=== PATIENT | male | born 1955 | race Two or more races ===

== ENCOUNTER → 2020-07-06 | Emergency (ER) | payer MEDICAID, OTHER ==
[~2020-07-06] VITALS: Ht 188 cm; Wt 167.8 kg
[2020-07-06 15:45] LABS: Basophils # (auto) 0.1 10 ^3/uL (0-0.2); Basophils % (auto) 0.8 % (0.0-2.0); Eosinophils # (auto) 0.1 10 ^3/uL (0-0.8); Eosinophils % (auto) 1.2 % (0.0-7.0); Hematocrit 39.7 % (41.0-53.0); Hemoglobin 13.9 g/dL (13.5-17.5); Lymphocytes # (auto) 1.2 10 ^3/uL (0.4-5.4); Lymphocytes % (auto) 12.2 % (10.0-50.0); Mean Corpuscular Hemoglobin 30.1 pg (28.0-32.0); Mean Corpuscular Hgb Conc. 34.9 g/dL (32.0-36.0); Mean Corpuscular Volume 86.3 fL (80.0-100.0); Monocytes # (auto) 0.7 10 ^3/uL (0-1.3); Monocytes % (auto) 7.6 % (0.0-12.0); Neutrophils # (auto) 7.6 10 ^3/uL (1.6-8.6); Neutrophils % (auto) 78.2 % (37.0-80.0); Platelet Count (auto) 285 10^3/uL (140-450); Red Cell Distribution Width 13.4 % (11.8-14.3); White Blood Cell 9.7 10^3/uL (4.4-10.8)
[2020-07-06 16:04] LABS: Albumin 3.3 g/dL (3.4-5.0); Anion Gap 3 (5-15); Blood Urea Nitrogen 18 mg/dL (7-18); Calcium 8.6 mg/dL (8.5-10.1); Carbon Dioxide 29 mmol/L (21-32); Chloride 105 mmol/L (98-107); Glucose 232 mg/dL (74-106); Potassium 4.5 mmol/L (3.5-5.1); Sodium 137 mmol/L (136-145)
[2020-07-06 16:10] LABS: Alanine Aminotransferase 27 U/L (16-61); Alkaline Phosphatase 59 U/L (45-117); Aspartate Aminotransferase 14 U/L (15-37); BUN/Creatinine Ratio 15.5; Bilirubin, Total 0.4 mg/dL (0.2-1.0); GFR African American 82 mL/min; GFR Non-African American 67 mL/min; Total Protein 7.3 g/dL (6.4-8.2)
[2020-07-06 17:03] VITALS: BP 133/87
== END | disposition home or self-care (01) ==
LOC: ER 14:19
DX: G45.9 Transient cerebral ischemic attack, unspecified (principal); E11.65 Type 2 diabetes mellitus with hyperglycemia; E44.1 Mild protein-calorie malnutrition; R42 Dizziness and giddiness; Z68.42 Body mass index [BMI] 45.0-49.9, adult
CPT/HCPCS: 36415; 70450; 71045; 80053; 84484; 85025; 93005

== ENCOUNTER 2021-04-14 17:08 | Inpatient (IN) | payer OTHER, MEDICAID ==
[~2021-04-14] VITALS: Ht 167.6 cm; Wt 171.5 kg
[2021-04-14 18:30] LABS: Basophils # (auto) 0 10 ^3/uL (0-0.2); Eosinophils # (auto) 0 10 ^3/uL (0-0.8); Eosinophils % (auto) 0.1 % (0.0-7.0); Hemoglobin 13.3 g/dL (13.5-17.5); Lymphocytes # (auto) 0.7 10 ^3/uL (0.4-5.4); Lymphocytes % (auto) 3.8 % (10.0-50.0); Mean Corpuscular Hemoglobin 28.6 pg (28.0-32.0); Mean Corpuscular Hgb Conc. 33.4 g/dL (32.0-36.0); Mean Corpuscular Volume 85.7 fL (80.0-100.0); Monocytes # (auto) 0.9 10 ^3/uL (0-1.3); Monocytes % (auto) 4.8 % (0.0-12.0); Neutrophils # (auto) 16.5 10 ^3/uL (1.6-8.6); Neutrophils % (auto) 91.3 % (37.0-80.0); Nucleated Red Blood Cells % 0.1 %; Red Blood Cells 4.67 10^6/uL (4.5-5.90)
[2021-04-14 18:54] LABS: Albumin 3.2 g/dL (3.4-5.0); Calcium 8.4 mg/dL (8.5-10.1); Magnesium 1.9 mg/dL (1.6-2.6); Potassium 4.7 mmol/L (3.5-5.1)
[2021-04-14 19:00] LABS: BUN/Creatinine Ratio 17.1; Bilirubin, Total 0.5 mg/dL (0.2-1.0); Total Protein 7.4 g/dL (6.4-8.2)
[2021-04-14] MEDS ORDERED: ACETAMINOPHEN 325 MG TAB PO ONE (21:00)
[2021-04-14 21:33] LABS: Lactic Acid w/Reflex 2.1 mmol/L (0.4-2.0)
[2021-04-14] MEDS ORDERED: SODIUM CHLORIDE 0.9% 1,000 ML IV ONE (22:00)
[2021-04-14] MEDS ORDERED: ASPirin 325 MG TAB PO ONE (22:00)
[2021-04-14] MEDS ORDERED: ENOXAPARIN SOD 100 MG/1 ML SYRINGE SC ONE (22:15)
[2021-04-15 01:15] LABS: Urine Bacteria NONE SEEN /hpf (None Seen); Urine Blood Negative /uL (Negative); Urine Hyaline Cast FEW /lpf (0 - 2); Urine Mucus FEW (None Seen); Urine Specific Gravity 1.015 (1.001-1.035); Urine WBC 10 /hpf (0 - 3)
[2021-04-15] MEDS ORDERED: ONDANSETRON HCL 4 MG/2 ML VIAL IV PRN (02:15)
[2021-04-15] MEDS ORDERED: SODIUM CHLORIDE 0.9% 1,000 ML IV SCH (02:15)
[2021-04-15] MEDS ORDERED: MORPHINE SULFATE INJECTION 2 MG/ML SYRG IV PRN (02:15)
[2021-04-15] MEDS ORDERED: DEXTROSE (50%) 50ML SYRG IV PRN (02:15)
[2021-04-15] MEDS ORDERED: NITROGLYCERIN 0.4 MG SL TAB SL PRN (02:15)
[2021-04-15] MEDS ORDERED: HEPARIN SODIUM (PORCINE) 5000 UNITS/ML 1ML VIAL IV ONE (02:30)
[2021-04-15 03:38] LABS: Basophils # (auto) 0.2 10 ^3/uL (0-0.2); Basophils % (auto) 1.4 % (0.0-2.0); Eosinophils # (auto) 0.1 10 ^3/uL (0-0.8); Eosinophils % (auto) 0.5 % (0.0-7.0); Hematocrit 39.3 % (41.0-53.0); Lymphocytes % (auto) 7.3 % (10.0-50.0); Mean Corpuscular Hemoglobin 28.5 pg (28.0-32.0); Mean Corpuscular Volume 86.3 fL (80.0-100.0); Monocytes # (auto) 0.9 10 ^3/uL (0-1.3); Monocytes % (auto) 6.7 % (0.0-12.0); Neutrophils # (auto) 11.2 10 ^3/uL (1.6-8.6); Neutrophils % (auto) 84.1 % (37.0-80.0); Red Blood Cells 4.55 10^6/uL (4.5-5.90); Red Cell Distribution Width 13.7 % (11.8-14.3); White Blood Cell 13.3 10^3/uL (4.4-10.8)
[2021-04-15 03:45] LABS: INR 1.1 (0.9-1.15); Partial Thromboplastin Time 34.1 sec (23.6-33.0)
[2021-04-15 05:00] VITALS: BP 116/56
[2021-04-15] MEDS: InsuLIN REG 1unit/0.01ml Soln (100units/ml) SC SCH ×2 (06:00→11:42)
[2021-04-15] MEDS: ACCU-CHEK COMFORT CURVE STRIP VI SCH ×2 (06:00→11:42)
[2021-04-15] MEDS ORDERED: HEPARIN SODIUM (PORCINE) 5000 UNITS/ML 1ML VIAL SC SCH (06:00)
[2021-04-15] MEDS: HEPARIN DRIP/D5W 100UNITS/ML 250 ML IV SCH ×2 (06:24→08:54)
[2021-04-15] MEDS: PIPERACILLIN-TAZOB 2.25GM 50 ML IV SCH ×2 (06:30→11:31)
[2021-04-15 09:00] VITALS: BP 121/80
[2021-04-15] MEDS ORDERED: ASPirin-EC 81 mg tab PO SCH (10:00)
[2021-04-15] MEDS: HYDROcodone-ACET 5/325MG TAB PO PRN ×2 (10:10→14:58)
[2021-04-15 12:11] LABS: BUN/Creatinine Ratio 21.6; Calcium 8.4 mg/dL (8.5-10.1); Potassium 4.5 mmol/L (3.5-5.1)
[2021-04-15 13:00] VITALS: BP 123/76
[2021-04-15 15:27] LABS: INR 1.08 (0.9-1.15); Partial Thromboplastin Time 46.3 sec (23.6-33.0)
[2021-04-15] MEDS ORDERED: ATORVASTATIN 20 MG TAB PO SCH (22:00)
== END 2021-04-15 17:40 | disposition left against medical advice (07) | DRG 871 ==
LOC: ER 17:08 → EDBD 17:08 → TELE-WESTW 04-15 02:14
PROVIDERS: ADMIT Hospitalist; ATTEND Hospitalist
DX: A41.9 Sepsis, unspecified organism (principal); I21.4 Non-ST elevation (NSTEMI) myocardial infarction; N17.9 Acute kidney failure, unspecified; Z68.44 Body mass index [BMI] 60.0-69.9, adult; E87.1 Hypo-osmolality and hyponatremia; L03.031 Cellulitis of right toe; E11.621 Type 2 diabetes mellitus with foot ulcer; E66.01 Morbid (severe) obesity due to excess calories; I10 Essential (primary) hypertension; Z20.822 Contact with and (suspected) exposure to COVID-19; Z53.29 Procedure and treatment not carried out because of patient's decision for other reasons; L97.519 Non-pressure chronic ulcer of other part of right foot with unspecified severity; Q66.89 Other specified congenital deformities of feet; Z80.1 Family history of malignant neoplasm of trachea, bronchus and lung; Z82.3 Family history of stroke
CPT/HCPCS: 36415; 71045; 73620; 80048; 80053; 80061; 81001; 82962; 83036; 83605; 83735; 84484; 85025; 85610; 85652; 85730; 87040; 87426; 93005; 93306; 93926; 96360; 96361; 96372; G0378; J2543

== ENCOUNTER 2022-05-03 20:11 | Inpatient (IN) | payer OTHER, MEDICAID ==
[~2022-05-03] VITALS: Ht 182.9 cm; Wt 145.0 kg
[2022-05-03] MEDS ORDERED: SODIUM CHLORIDE 0.9% 1,000 ML IV ONE ×2 (20:30→23:45)
[2022-05-03] MEDS ORDERED: amLODIPine BESYLATE 5 MG TAB PO ONE (20:30)
[2022-05-03] MEDS ORDERED: InsuLIN REG 1unit/0.01ml Soln (100units/ml) SC ONE (20:30)
[2022-05-03 21:22] LABS: Basophils # (auto) 0 10 ^3/uL (0-0.2); Basophils % (auto) 0.2 % (0.0-2.0); Eosinophils # (auto) 0.1 10 ^3/uL (0-0.8); Eosinophils % (auto) 0.3 % (0.0-7.0); Hematocrit 44.7 % (41.0-53.0); Hemoglobin 14.4 g/dL (13.5-17.5); Lymphocytes # (auto) 0.6 10 ^3/uL (0.4-5.4); Lymphocytes % (auto) 2.2 % (10.0-50.0); Mean Corpuscular Hemoglobin 27.9 pg (28.0-32.0); Mean Corpuscular Hgb Conc. 32.2 g/dL (32.0-36.0); Mean Corpuscular Volume 86.7 fL (80.0-100.0); Monocytes # (auto) 0.9 10 ^3/uL (0-1.3); Monocytes % (auto) 3.8 % (0.0-12.0); Neutrophils # (auto) 23.5 10 ^3/uL (1.6-8.6); Neutrophils % (auto) 93.5 % (37.0-80.0); Red Blood Cells 5.15 10^6/uL (4.5-5.90); Red Cell Distribution Width 13.6 % (11.8-14.3); White Blood Cell 25.1 10^3/uL (4.4-10.8)
[2022-05-03 21:35] LABS: Partial Thromboplastin Time 25.9 sec (24.6-33.4)
[2022-05-03 21:44] LABS: Albumin 3.4 g/dL (3.4-5.0); Magnesium 1.5 mg/dL (1.6-2.6); Potassium 4.3 mmol/L (3.5-5.1)
[2022-05-03 21:47] LABS: BUN/Creatinine Ratio 8.9
[2022-05-03 21:50] LABS: Bilirubin, Total 0.5 mg/dL (0.2-1.0); Total Protein 7.9 g/dL (6.4-8.2)
[2022-05-03] MEDS ORDERED: cefTRIAXone 1GM/50ML D5W 50 ML IV ONE (23:30)
[2022-05-03] MEDS ORDERED: AZITHROMYCIN 500MG/ 250ML 250 ML IV ONE (23:30)
[2022-05-03 23:47] LABS: Lactic Acid w/Reflex 4.4 mmol/L (0.4-2.0)
[2022-05-04] MEDS ORDERED: ACETAMINOPHEN 500 MG TAB PO ONE (00:30)
[2022-05-04] MEDS ORDERED: SODIUM CHLORIDE 0.9% 1,000 ML IV ONE (03:30)
[2022-05-04] MEDS ORDERED: InsuLIN REG 1unit/0.01ml Soln (100units/ml) IV ONE (03:30)
[2022-05-04] MEDS ORDERED: VANCOMYCIN 1GM/250ML 250 ML IV ONE (03:30)
[2022-05-04] MEDS ORDERED: DEXTROSE (50%) 50ML SYRG IV PRN (06:15)
[2022-05-04] MEDS ORDERED: MORPHINE SULFATE INJ 2 MG/ml SYRG IV PRN (06:15)
[2022-05-04] MEDS ORDERED: NITROGLYCERIN 0.4 MG SL TAB SL PRN (06:15)
[2022-05-04] MEDS ORDERED: ACETAMINOPHEN 325 MG TAB PO PRN (06:15)
[2022-05-04] MEDS ORDERED: ONDANSETRON HCL 4 MG/2 ML VIAL IV PRN (06:15)
[2022-05-04] MEDS: MAGNESIUM SULFATE 1GM/100ML 100 ML IV SCH ×2 (08:02→15:15)
[2022-05-04] MEDS ORDERED: PANTOPRAZOLE 40 MG TAB PO SCH (10:00)
[2022-05-04] MEDS ORDERED: AZITHROMYCIN 500MG/ 250ML 250 ML IV SCH (10:00)
[2022-05-04] MEDS: ENOXAPARIN SOD 40 MG/0.4 ML SYRINGE SC SCH (10:00)
[2022-05-04] MEDS ORDERED: HALOPERIDOL LACTATE 5 MG/ML INJ VIAL IM PRN ×2 (11:00→19:15)
[2022-05-04] MEDS ORDERED: HALOPERIDOL LACTATE 5 MG/ML INJ VIAL IM ONE (11:30)
[2022-05-04] MEDS: ACCU-CHEK COMFORT CURVE STRIP VI SCH ×2 (12:00→18:23)
[2022-05-04] MEDS: cefTRIAXone 1GM/50ML D5W 50 ML IV SCH (12:26)
[2022-05-04] MEDS: InsuLIN REG 1unit/0.01ml Soln (100units/ml) SC SCH ×2 (12:37→18:45)
[2022-05-04] MEDS: DOXYCYCLINE 100MG/250ML 250 ML IV SCH (13:46)
[2022-05-04] MEDS: SODIUM CHLORIDE 0.9% 1,000 ML IV SCH ×2 (18:01→18:23)
[2022-05-05] MEDS: ACCU-CHEK COMFORT CURVE STRIP VI SCH ×5 (01:46→22:00)
[2022-05-05] MEDS: InsuLIN REG 1unit/0.01ml Soln (100units/ml) SC SCH ×4 (01:48→18:00)
[2022-05-05] MEDS: DOXYCYCLINE 100MG/250ML 250 ML IV SCH ×3 (01:51→22:42)
[2022-05-05] MEDS ORDERED: IPRATROPIUM BROM 0.5 MG/2.5ML INH SOL NEB PRN (03:15)
[2022-05-05] MEDS ORDERED: ALBUTEROL SULF 2.5 MG/0.5ML(0.5%) NEB SOLN NEB PRN (03:15)
[2022-05-05] MEDS ORDERED: methylPREDNISolone SOD SUCC 125 MG/2 ML VL IV ONE (03:15)
[2022-05-05 04:39] LABS: Hematocrit 39.8 % (41.0-53.0); Hemoglobin 12.9 g/dL (13.5-17.5); Mean Corpuscular Hemoglobin 28.5 pg (28.0-32.0); Mean Corpuscular Hgb Conc. 32.5 g/dL (32.0-36.0); Mean Corpuscular Volume 87.5 fL (80.0-100.0); Red Blood Cells 4.55 10^6/uL (4.5-5.90); Red Cell Distribution Width 13.6 % (11.8-14.3)
[2022-05-05 04:46] LABS: Basophils % (manual) 0 (0.0-2.0); Blast Cells 0; Eosinophils % (manual) 0 (0-7); Metamyelocytes % 0; Myelocytes % 0; Promyelocytes % 0; Reactive Lymphocytes 0
[2022-05-05 05:20] LABS: Albumin 2.4 g/dL (3.4-5.0); BUN/Creatinine Ratio 14.3; Bilirubin, Total 0.6 mg/dL (0.2-1.0); Calcium 8.4 mg/dL (8.5-10.1); Potassium 4.3 mmol/L (3.5-5.1); Total Protein 7.2 g/dL (6.4-8.2)
[2022-05-05] MEDS: SODIUM CHLORIDE 0.9% 1,000 ML IV SCH ×2 (06:41→17:33)
[2022-05-05 08:12] LABS: Band Neutrophils % (manual) 12; Lymphocytes % (manual) 11 (10.0-50.0); Monocytes % (manual) 2 (0-12)
[2022-05-05] MEDS: ENOXAPARIN SOD 40 MG/0.4 ML SYRINGE SC SCH (09:52)
[2022-05-05] MEDS: cefTRIAXone 1GM/50ML D5W 50 ML IV SCH (09:52)
[2022-05-05] MEDS ORDERED: IOHEXOL 350 MG/ML 100ML IJ ONE (16:50)
[2022-05-05] MEDS ORDERED: DEXTROSE (50%) 50ML SYRG IV PRN (19:45)
[2022-05-05] MEDS ORDERED: InsuLIN REG 1unit/0.01ml Soln (100units/ml) SC ONE (19:45)
[2022-05-05] MEDS ORDERED: HYDROcodone-ACET 10/325MG TAB PO PRN (21:45)
[2022-05-05 22:00] VITALS: BP 136/76
[2022-05-05] MEDS: GABAPENTIN 300 MG CAP PO SCH (22:42)
[2022-05-06] MEDS: GABAPENTIN 300 MG CAP PO SCH ×3 (06:01→22:00)
[2022-05-06] MEDS: SODIUM CHLORIDE 0.9% 1,000 ML IV SCH ×2 (06:02→17:23)
[2022-05-06 06:10] LABS: Hematocrit 38.7 % (41.0-53.0); Hemoglobin 12.6 g/dL (13.5-17.5); Mean Corpuscular Hemoglobin 28.5 pg (28.0-32.0); Mean Corpuscular Hgb Conc. 32.4 g/dL (32.0-36.0); Mean Corpuscular Volume 87.9 fL (80.0-100.0); White Blood Cell 28.5 10^3/uL (4.4-10.8)
[2022-05-06 06:27] LABS: Basophils % (manual) 0 (0.0-2.0); Blast Cells 0; Eosinophils % (manual) 0 (0-7); Metamyelocytes % 0; Monocytes % (manual) 0 (0-12); Myelocytes % 0; Promyelocytes % 0; Reactive Lymphocytes 0
[2022-05-06 06:28] LABS: Calcium 7.6 mg/dL (8.5-10.1)
[2022-05-06 06:30] LABS: BUN/Creatinine Ratio 19.3
[2022-05-06 06:38] LABS: Potassium 5.2 mmol/L (3.5-5.1)
[2022-05-06 06:49] LABS: Band Neutrophils % (manual) 30; Lymphocytes % (manual) 7 (10.0-50.0)
[2022-05-06] MEDS: ACCU-CHEK COMFORT CURVE STRIP VI SCH ×4 (06:54→22:34)
[2022-05-06] MEDS: InsuLIN REG 1unit/0.01ml Soln (100units/ml) SC SCH ×3 (07:20→17:22)
[2022-05-06] MEDS: cefTRIAXone 1GM/50ML D5W 50 ML IV SCH (09:08)
[2022-05-06] MEDS: ENOXAPARIN SOD 40 MG/0.4 ML SYRINGE SC SCH (10:00)
[2022-05-06] MEDS: DOXYCYCLINE 100MG/250ML 250 ML IV SCH ×2 (11:29→22:41)
[2022-05-07 02:26] VITALS: BP 149/99
[2022-05-07 05:00] VITALS: BP 140/84
[2022-05-07] MEDS: SODIUM CHLORIDE 0.9% 1,000 ML IV SCH (05:44)
[2022-05-07 05:57] LABS: Basophils # (auto) 0.1 10 ^3/uL (0-0.2); Basophils % (auto) 0.8 % (0.0-2.0); Eosinophils # (auto) 0.2 10 ^3/uL (0-0.8); Eosinophils % (auto) 1.4 % (0.0-7.0); Hematocrit 38.7 % (41.0-53.0); Hemoglobin 12.4 g/dL (13.5-17.5); Lymphocytes # (auto) 1.9 10 ^3/uL (0.4-5.4); Lymphocytes % (auto) 14.6 % (10.0-50.0); Mean Corpuscular Hgb Conc. 32.1 g/dL (32.0-36.0); Mean Corpuscular Volume 87.2 fL (80.0-100.0); Monocytes # (auto) 0.9 10 ^3/uL (0-1.3); Neutrophils # (auto) 9.8 10 ^3/uL (1.6-8.6); Neutrophils % (auto) 76.2 % (37.0-80.0); Nucleated Red Blood Cells % 0.1 %; Red Blood Cells 4.44 10^6/uL (4.5-5.90); White Blood Cell 12.9 10^3/uL (4.4-10.8)
[2022-05-07 06:16] LABS: Potassium 4.9 mmol/L (3.5-5.1)
[2022-05-07 06:22] LABS: Calcium 8.7 mg/dL (8.5-10.1)
[2022-05-07] MEDS: GABAPENTIN 300 MG CAP PO SCH ×3 (06:38→22:41)
[2022-05-07] MEDS: ACCU-CHEK COMFORT CURVE STRIP VI SCH ×4 (06:39→22:41)
[2022-05-07] MEDS: InsuLIN REG 1unit/0.01ml Soln (100units/ml) SC SCH ×4 (06:40→22:42)
[2022-05-07] MEDS ORDERED: LISI-716 PO (07:14)
[2022-05-07] MEDS ORDERED: GABA-339 PO (07:15)
[2022-05-07] MEDS ORDERED: METF-371 PO (07:16)
[2022-05-07 09:00] VITALS: BP 112/64
[2022-05-07] MEDS: cefTRIAXone 1GM/50ML D5W 50 ML IV SCH (11:07)
[2022-05-07] MEDS: ENOXAPARIN SOD 40 MG/0.4 ML SYRINGE SC SCH (11:21)
[2022-05-07 13:00] VITALS: BP 137/81
[2022-05-07 17:00] VITALS: BP 142/99
[2022-05-07 22:00] VITALS: BP 124/72
[2022-05-08] VITALS (8 sets, daily range): BP systolic 108–155; BP diastolic 68–84
[2022-05-08] MEDS: GABAPENTIN 300 MG CAP PO SCH ×3 (05:57→22:59)
[2022-05-08] MEDS: ACCU-CHEK COMFORT CURVE STRIP VI SCH ×4 (05:57→22:56)
[2022-05-08] MEDS: ENOXAPARIN SOD 40 MG/0.4 ML SYRINGE SC SCH (09:58)
[2022-05-08] MEDS: cefTRIAXone 1GM/50ML D5W 50 ML IV SCH (09:58)
[2022-05-08] MEDS: InsuLIN REG 1unit/0.01ml Soln (100units/ml) SC SCH ×3 (12:35→22:58)
[2022-05-09 05:00] VITALS: BP 136/88
[2022-05-09] MEDS: ACCU-CHEK COMFORT CURVE STRIP VI SCH ×2 (06:46→11:58)
[2022-05-09] MEDS: InsuLIN REG 1unit/0.01ml Soln (100units/ml) SC SCH ×2 (06:47→12:07)
[2022-05-09] MEDS: GABAPENTIN 300 MG CAP PO SCH ×2 (06:48→14:41)
[2022-05-09 08:10] VITALS: BP 110/73
[2022-05-09] MEDS: cefTRIAXone 1GM/50ML D5W 50 ML IV SCH (08:10)
[2022-05-09 09:00] VITALS: BP 110/72
[2022-05-09] MEDS: ENOXAPARIN SOD 40 MG/0.4 ML SYRINGE SC SCH (09:03)
[2022-05-09] MEDS ORDERED: LEVO750T64 PO (10:08)
[2022-05-09 11:08] VITALS: BP 110/73
[2022-05-09 13:00] VITALS: BP 113/76
== END 2022-05-09 14:50 | disposition home health service (06) | DRG 871 ==
LOC: EDBD 20:11 → ER 20:16 → TELE 05-04 06:12 → TELE-CENTR 05-06 23:45
PROVIDERS: ADMIT Nurse Practitioner; ATTEND Internal Medicine Pulmonary Disease
DX: A40.0 Sepsis due to streptococcus, group A (principal); G93.41 Metabolic encephalopathy; J15.4 Pneumonia due to other streptococci; J96.01 Acute respiratory failure with hypoxia; G93.1 Anoxic brain damage, not elsewhere classified; Z68.41 Body mass index [BMI] 40.0-44.9, adult; Z83.3 Family history of diabetes mellitus; E11.21 Type 2 diabetes mellitus with diabetic nephropathy; E11.649 Type 2 diabetes mellitus with hypoglycemia without coma; E11.65 Type 2 diabetes mellitus with hyperglycemia; Z20.822 Contact with and (suspected) exposure to COVID-19; E66.01 Morbid (severe) obesity due to excess calories; E83.42 Hypomagnesemia; I10 Essential (primary) hypertension; Z80.1 Family history of malignant neoplasm of trachea, bronchus and lung; Z79.899 Other long term (current) drug therapy; Z82.3 Family history of stroke; Z82.49 Family history of ischemic heart disease and other diseases of the circulatory system
CPT/HCPCS: 36415; 36600; 70450; 71045; 71275; 80048; 80053; 82010; 82805; 82962; 83605; 83735; 83880; 84484; 85007; 85025; 85027; 85379; 85610; 85730; 87040; 87077; 87186; 87426; 93005; 93970; 94640; 95819; 96361; 96365; 96367; 96372; 99291; G0378; J0696; J1815; J3490

== ENCOUNTER 2022-09-29 13:02 | Inpatient (IN) | payer OTHER, MEDICAID ==
[~2022-09-29] VITALS: Ht 188 cm; Wt 156.7 kg
[~2022-09-29 13:02] MED LIST: GABA-339 PO; LEVO750T64 PO; LISI-716 PO; METF-371 PO
[2022-09-29] MEDS ORDERED: IOHEXOL 350 MG/ML 100ML IJ ONE ×2 (13:13→14:35)
[2022-09-29] MEDS ORDERED: methylPREDNISolone SOD SUCC 125 MG/2 ML VL IV ONE (13:15)
[2022-09-29] MEDS ORDERED: PIPERACILLIN-TAZO 4.5GM 100 ML IV ONE (13:15)
[2022-09-29 13:41] LABS: Hematocrit 42.7 % (41.0-53.0); Hemoglobin 13.9 g/dL (13.5-17.5); Mean Corpuscular Hgb Conc. 32.7 g/dL (32.0-36.0); Mean Corpuscular Volume 85.8 fL (80.0-100.0); Red Blood Cells 4.97 10^6/uL (4.5-5.90); Red Cell Distribution Width 13.6 % (11.8-14.3); White Blood Cell 26.1 10^3/uL (4.4-10.8)
[2022-09-29 13:49] LABS: Basophils % (manual) 0 (0.0-2.0); Blast Cells 0; Eosinophils % (manual) 0 (0-7); Metamyelocytes % 0; Myelocytes % 0; Promyelocytes % 0; Reactive Lymphocytes 0
[2022-09-29 14:03] LABS: INR 1.03 (0.9-1.15); Partial Thromboplastin Time 24.7 sec (24.6-33.4)
[2022-09-29 14:07] LABS: Albumin 3.6 g/dL (3.4-5.0); Calcium 9.1 mg/dL (8.5-10.1); Potassium 4.4 mmol/L (3.5-5.1)
[2022-09-29 14:09] LABS: Lactic Acid w/Reflex 2.5 mmol/L (0.4-2.0)
[2022-09-29 14:11] LABS: BUN/Creatinine Ratio 12.3 (10.0-20.0); Bilirubin, Total 0.6 mg/dL (0.2-1.0); Total Protein 7.3 g/dL (6.4-8.2)
[2022-09-29] MEDS ORDERED: AZITHROMYCIN 500MG/ 250ML 250 ML IV ONE (14:15)
[2022-09-29] MEDS ORDERED: SODIUM CHLORIDE 0.9% 1,000 ML IV ONE (14:15)
[2022-09-29] MEDS ORDERED: ALBUTEROL SULF 2.5 MG/0.5ML(0.5%) NEB SOLN NEB PRN (15:45)
[2022-09-29] MEDS ORDERED: DEXTROSE (50%) 50ML SYRG IV PRN (15:45)
[2022-09-29] MEDS ORDERED: HEPARIN SODIUM (PORCINE) 5000 UNITS/ML 1ML VIAL IV ONE (16:00)
[2022-09-29] MEDS ORDERED: NITROGLYCERIN 0.4 MG SL TAB SL PRN (16:15)
[2022-09-29] MEDS ORDERED: MORPHINE SULFATE INJ 2 MG/ml SYRG IV PRN (16:15)
[2022-09-29 16:17] LABS: Band Neutrophils % (manual) 6; Lymphocytes % (manual) 8 (10.0-50.0); Monocytes % (manual) 4 (0-12)
[2022-09-29 16:24] LABS: Lactic Acid w/Reflex 2.5 mmol/L (0.4-2.0)
[2022-09-29] MEDS: SODIUM CHLORIDE 0.9% 1,000 ML IV SCH (16:33)
[2022-09-29 16:34] LABS: Cholesterol 152 mg/dL (< 200); HDL Cholesterol 30 mg/dL (40-59); LDL Cholesterol 110 mg/dL (< 100); Triglycerides 146 mg/dL (< 150)
[2022-09-29] MEDS: ACCU-CHEK COMFORT CURVE STRIP VI SCH ×2 (17:15→21:55)
[2022-09-29] MEDS: InsuLIN REG 1unit/0.01ml Soln (100units/ml) SC SCH ×2 (17:23→21:56)
[2022-09-29] MEDS: ALBUTEROL SULF 2.5 MG/0.5ML(0.5%) NEB SOLN NEB SCH ×2 (18:50→22:48)
[2022-09-29] MEDS: IPRATROPIUM BROM 0.5 MG/2.5ML INH SOL NEB SCH ×2 (18:50→22:48)
[2022-09-29] MEDS: GABAPENTIN 300 MG CAP PO SCH (21:55)
[2022-09-29] MEDS: PIPERACILLIN-TAZOB 3.375GM 100 ML IV SCH (21:55)
[2022-09-30 02:08] LABS: Urine Bacteria NONE SEEN /hpf (None Seen); Urine Blood Negative /uL (Negative); Urine Specific Gravity 1.029 (1.001-1.035); Urine WBC None Seen /hpf (0 - 3)
[2022-09-30 02:44] LABS: Alcohol, Urine < 3.0 mg/dL (0-10); Amphetamine Screen, Urine NEGATIVE (NEGATIVE); Barbiturate Scree,Urine NEGATIVE (NEGATIVE); Benzodiazephine Screen, Urine NEGATIVE (NEGATIVE); Cannabinoid Screen, Urine NEGATIVE (NEGATIVE); Cocaine Screen, Urine NEGATIVE (NEGATIVE); Opiate Scree,Urine NEGATIVE (NEGATIVE); Phencyclidine Screen, Urine NEGATIVE (NEGATIVE)
[2022-09-30] MEDS: ALBUTEROL SULF 2.5 MG/0.5ML(0.5%) NEB SOLN NEB SCH ×5 (06:21→21:55)
[2022-09-30] MEDS: IPRATROPIUM BROM 0.5 MG/2.5ML INH SOL NEB SCH ×5 (06:22→21:55)
[2022-09-30 06:51] LABS: Albumin 3.4 g/dL (3.4-5.0); BUN/Creatinine Ratio 15.1 (10.0-20.0); Bilirubin, Total 0.6 mg/dL (0.2-1.0); Total Protein 8.1 g/dL (6.4-8.2)
[2022-09-30] MEDS: PIPERACILLIN-TAZOB 3.375GM 100 ML IV SCH ×3 (07:00→22:15)
[2022-09-30] MEDS: InsuLIN REG 1unit/0.01ml Soln (100units/ml) SC SCH ×4 (07:01→22:30)
[2022-09-30] MEDS: ACCU-CHEK COMFORT CURVE STRIP VI SCH ×4 (07:01→22:27)
[2022-09-30] MEDS: SODIUM CHLORIDE 0.9% 1,000 ML IV SCH ×2 (09:21→22:27)
[2022-09-30] MEDS: GABAPENTIN 300 MG CAP PO SCH ×2 (09:27→22:27)
[2022-09-30] MEDS ORDERED: ENOXAPARIN SOD 40 MG/0.4 ML SYRINGE SC SCH (10:00)
[2022-09-30] MEDS ORDERED: LISINOPRIL 10 MG TAB PO SCH (10:00)
[2022-09-30] MEDS: AZITHROMYCIN 500MG/ 250ML 250 ML IV SCH (12:51)
[2022-09-30 17:00] VITALS: BP 130/52
[2022-09-30] MEDS ORDERED: LORazepam 0.5 MG TAB PO PRN (17:15)
[2022-09-30] MEDS: ENOXAPARIN SOD 150 MG/1 ML SYRINGE SC SCH (17:47)
[2022-09-30] MEDS: ACETAMINOPHEN 325 MG TAB PO PRN (18:23)
[2022-09-30] MEDS ORDERED: SODIUM CHLORIDE 0.9% 1,000 ML IV SCH (22:30)
[2022-09-30 23:01] VITALS: BP 87/39
[2022-09-30 23:16] VITALS: BP 94/54
[2022-09-30 23:45] VITALS: BP 96/42
[2022-10-01] VITALS (74 sets, daily range): BP systolic 29–134; BP diastolic 12–75
[2022-10-01] MEDS: NOREPINEPHRINE 8 MG/250ML KIT 250 ML IV SCH ×2 (04:19→22:15)
[2022-10-01] MEDS: PIPERACILLIN-TAZOB 3.375GM 100 ML IV SCH ×3 (05:49→20:53)
[2022-10-01] MEDS: ENOXAPARIN SOD 150 MG/1 ML SYRINGE SC SCH ×2 (05:49→18:00)
[2022-10-01] MEDS: IPRATROPIUM BROM 0.5 MG/2.5ML INH SOL NEB SCH ×5 (06:09→22:09)
[2022-10-01] MEDS: ALBUTEROL SULF 2.5 MG/0.5ML(0.5%) NEB SOLN NEB SCH ×5 (06:09→22:09)
[2022-10-01] MEDS: ACCU-CHEK COMFORT CURVE STRIP VI SCH ×4 (06:37→22:15)
[2022-10-01] MEDS: InsuLIN REG 1unit/0.01ml Soln (100units/ml) SC SCH ×4 (06:39→22:16)
[2022-10-01] MEDS: AZITHROMYCIN 500MG/ 250ML 250 ML IV SCH (08:53)
[2022-10-01] MEDS: GABAPENTIN 300 MG CAP PO SCH ×2 (08:54→20:54)
[2022-10-01] MEDS: ACETAMINOPHEN 325 MG TAB PO PRN ×2 (08:54→20:54)
[2022-10-01 08:58] LABS: Basophils # (auto) 0.2 10 ^3/uL (0-0.2); Eosinophils # (auto) 0.1 10 ^3/uL (0-0.8); Eosinophils % (auto) 0.6 % (0.0-7.0); Hematocrit 36.9 % (41.0-53.0); Hemoglobin 12.2 g/dL (13.5-17.5); Lymphocytes # (auto) 1.8 10 ^3/uL (0.4-5.4); Mean Corpuscular Hemoglobin 28.2 pg (28.0-32.0); Mean Corpuscular Hgb Conc. 33.1 g/dL (32.0-36.0); Mean Corpuscular Volume 85.2 fL (80.0-100.0); Monocytes # (auto) 1.1 10 ^3/uL (0-1.3); Monocytes % (auto) 5.7 % (0.0-12.0); Neutrophils # (auto) 16.6 10 ^3/uL (1.6-8.6); Neutrophils % (auto) 83.7 % (37.0-80.0); Nucleated Red Blood Cells % 0.1 %; Red Blood Cells 4.33 10^6/uL (4.5-5.90); Red Cell Distribution Width 14.1 % (11.8-14.3); White Blood Cell 19.8 10^3/uL (4.4-10.8)
[2022-10-01 09:23] LABS: Potassium 4.2 mmol/L (3.5-5.1)
[2022-10-01 09:27] LABS: BUN/Creatinine Ratio 18.1 (10.0-20.0); Calcium 8.5 mg/dL (8.5-10.1)
[2022-10-01] MEDS: SODIUM CHLORIDE 0.9% 1,000 ML IV SCH ×2 (12:16→12:17)
[2022-10-01] MEDS ORDERED: SODIUM CHLORIDE 0.9% 1,000 ML IV SCH (15:00)
[2022-10-01] MEDS ORDERED: SODIUM CHLORIDE 0.9% 1,000 ML IV ONE (15:15)
[2022-10-01] MEDS: HYDROcodone-ACET 10/325MG TAB PO PRN (20:54)
[2022-10-02] VITALS (50 sets, daily range): BP systolic 77–153; BP diastolic 51–120
[2022-10-02] MEDS: SODIUM CHLORIDE 0.9% 1,000 ML IV SCH ×2 (01:01→20:26)
[2022-10-02] MEDS: HYDROcodone-ACET 10/325MG TAB PO PRN ×3 (01:25→17:50)
[2022-10-02] MEDS ORDERED: SODIUM CHLORIDE 0.9% 1,000 ML IV SCH (03:00)
[2022-10-02 05:08] LABS: Basophils # (auto) 0.1 10 ^3/uL (0-0.2); Basophils % (auto) 1.1 % (0.0-2.0); Eosinophils # (auto) 0.7 10 ^3/uL (0-0.8); Eosinophils % (auto) 7.1 % (0.0-7.0); Hematocrit 36.6 % (41.0-53.0); Hemoglobin 12.3 g/dL (13.5-17.5); Lymphocytes # (auto) 1.9 10 ^3/uL (0.4-5.4); Mean Corpuscular Hemoglobin 28.2 pg (28.0-32.0); Mean Corpuscular Hgb Conc. 33.6 g/dL (32.0-36.0); Mean Corpuscular Volume 83.9 fL (80.0-100.0); Monocytes # (auto) 1.2 10 ^3/uL (0-1.3); Monocytes % (auto) 12.6 % (0.0-12.0); Neutrophils % (auto) 60.2 % (37.0-80.0); Nucleated Red Blood Cells % 0.1 %; Red Blood Cells 4.36 10^6/uL (4.5-5.90); Red Cell Distribution Width 13.7 % (11.8-14.3); White Blood Cell 9.9 10^3/uL (4.4-10.8)
[2022-10-02 05:18] LABS: Calcium 8.6 mg/dL (8.5-10.1)
[2022-10-02 05:21] LABS: BUN/Creatinine Ratio 19.6 (10.0-20.0); Bilirubin, Total 0.4 mg/dL (0.2-1.0); Total Protein 7.3 g/dL (6.4-8.2)
[2022-10-02] MEDS: ACCU-CHEK COMFORT CURVE STRIP VI SCH ×4 (05:54→22:22)
[2022-10-02] MEDS: PIPERACILLIN-TAZOB 3.375GM 100 ML IV SCH ×3 (05:54→17:50)
[2022-10-02] MEDS: ENOXAPARIN SOD 150 MG/1 ML SYRINGE SC SCH ×2 (05:55→19:01)
[2022-10-02] MEDS: InsuLIN REG 1unit/0.01ml Soln (100units/ml) SC SCH ×4 (05:56→22:32)
[2022-10-02] MEDS: ALBUTEROL SULF 2.5 MG/0.5ML(0.5%) NEB SOLN NEB SCH ×6 (05:59→21:55)
[2022-10-02] MEDS: IPRATROPIUM BROM 0.5 MG/2.5ML INH SOL NEB SCH ×6 (05:59→21:55)
[2022-10-02] MEDS: GABAPENTIN 300 MG CAP PO SCH ×2 (09:51→22:22)
[2022-10-02] MEDS: AZITHROMYCIN 500MG/ 250ML 250 ML IV SCH (09:51)
[2022-10-02] MEDS: LINEZOLID 600MG/300ML 300 ML IV SCH (22:22)
[2022-10-03] MEDS: PIPERACILLIN-TAZOB 3.375GM 100 ML IV SCH ×3 (00:27→14:20)
[2022-10-03] MEDS: HYDROcodone-ACET 10/325MG TAB PO PRN ×3 (01:45→19:49)
[2022-10-03 05:00] VITALS: BP 108/70
[2022-10-03] MEDS: ENOXAPARIN SOD 150 MG/1 ML SYRINGE SC SCH ×2 (05:50→18:38)
[2022-10-03] MEDS: ACCU-CHEK COMFORT CURVE STRIP VI SCH ×4 (06:46→22:18)
[2022-10-03] MEDS: ALBUTEROL SULF 2.5 MG/0.5ML(0.5%) NEB SOLN NEB SCH ×5 (07:10→22:30)
[2022-10-03] MEDS: IPRATROPIUM BROM 0.5 MG/2.5ML INH SOL NEB SCH ×5 (07:10→22:30)
[2022-10-03] MEDS: InsuLIN REG 1unit/0.01ml Soln (100units/ml) SC SCH ×4 (07:21→22:59)
[2022-10-03 09:00] VITALS: BP 112/73
[2022-10-03] MEDS: GABAPENTIN 300 MG CAP PO SCH ×2 (09:59→22:08)
[2022-10-03] MEDS: LINEZOLID 600MG/300ML 300 ML IV SCH ×2 (10:02→22:09)
[2022-10-03 13:00] VITALS: BP 116/76
[2022-10-03] MEDS: SODIUM CHLORIDE 0.9% 1,000 ML IV SCH (13:25)
[2022-10-03 17:00] VITALS: BP 130/75
[2022-10-03 22:00] VITALS: BP 139/85
[2022-10-04] MEDS: PIPERACILLIN-TAZOB 3.375GM 100 ML IV SCH ×4 (00:18→23:01)
[2022-10-04] MEDS: SODIUM CHLORIDE 0.9% 1,000 ML IV SCH ×2 (03:00→23:04)
[2022-10-04] MEDS: HYDROcodone-ACET 10/325MG TAB PO PRN ×3 (03:31→19:54)
[2022-10-04 05:00] VITALS: BP 118/57
[2022-10-04] MEDS: ENOXAPARIN SOD 150 MG/1 ML SYRINGE SC SCH (06:02)
[2022-10-04] MEDS: ACCU-CHEK COMFORT CURVE STRIP VI SCH ×4 (06:51→21:12)
[2022-10-04] MEDS: InsuLIN REG 1unit/0.01ml Soln (100units/ml) SC SCH ×4 (06:52→21:12)
[2022-10-04 09:00] VITALS: BP_SYST 121; BP_SYST 124; BP_DIAS 80
[2022-10-04] MEDS: GABAPENTIN 300 MG CAP PO SCH ×2 (11:43→21:01)
[2022-10-04] MEDS: LINEZOLID 600MG/300ML 300 ML IV SCH ×2 (11:43→21:01)
[2022-10-04 13:00] VITALS: BP 116/75
[2022-10-04 13:40] LABS: BUN/Creatinine Ratio 15.6 (10.0-20.0); Calcium 9.5 mg/dL (8.5-10.1); Potassium 4.3 mmol/L (3.5-5.1)
[2022-10-04 17:00] VITALS: BP 122/71
[2022-10-04 18:12] LABS: Basophils # (auto) 0.1 10 ^3/uL (0-0.2); Basophils % (auto) 1.4 % (0.0-2.0); Eosinophils # (auto) 0.6 10 ^3/uL (0-0.8); Eosinophils % (auto) 5.3 % (0.0-7.0); Hematocrit 42.4 % (41.0-53.0); Hemoglobin 14.2 g/dL (13.5-17.5); Lymphocytes # (auto) 2.5 10 ^3/uL (0.4-5.4); Lymphocytes % (auto) 24.1 % (10.0-50.0); Mean Corpuscular Hemoglobin 27.9 pg (28.0-32.0); Mean Corpuscular Hgb Conc. 33.4 g/dL (32.0-36.0); Mean Corpuscular Volume 83.5 fL (80.0-100.0); Monocytes # (auto) 0.8 10 ^3/uL (0-1.3); Monocytes % (auto) 7.7 % (0.0-12.0); Neutrophils # (auto) 6.5 10 ^3/uL (1.6-8.6); Neutrophils % (auto) 61.5 % (37.0-80.0); Nucleated Red Blood Cells % 0.2 %; Red Blood Cells 5.07 10^6/uL (4.5-5.90); Red Cell Distribution Width 13.9 % (11.8-14.3); White Blood Cell 10.6 10^3/uL (4.4-10.8)
[2022-10-04] MEDS: APIXABAN 5 MG TAB PO SCH (20:19)
[2022-10-04 22:00] VITALS: BP 113/62
[2022-10-05] VITALS (7 sets, daily range): BP systolic 107–135; BP diastolic 57–69
[2022-10-05] MEDS: HYDROcodone-ACET 10/325MG TAB PO PRN ×4 (00:46→18:21)
[2022-10-05] MEDS: PIPERACILLIN-TAZOB 3.375GM 100 ML IV SCH ×3 (05:51→23:25)
[2022-10-05] MEDS: ACCU-CHEK COMFORT CURVE STRIP VI SCH ×4 (06:25→21:05)
[2022-10-05] MEDS: InsuLIN REG 1unit/0.01ml Soln (100units/ml) SC SCH ×4 (06:26→21:19)
[2022-10-05 07:01] LABS: Calcium 9.5 mg/dL (8.5-10.1); Potassium 4.3 mmol/L (3.5-5.1)
[2022-10-05] MEDS: GABAPENTIN 300 MG CAP PO SCH ×2 (09:03→21:05)
[2022-10-05] MEDS: LINEZOLID 600MG/300ML 300 ML IV SCH ×2 (09:03→21:04)
[2022-10-05] MEDS: APIXABAN 5 MG TAB PO SCH ×2 (09:03→18:21)
[2022-10-06] MEDS: HYDROcodone-ACET 10/325MG TAB PO PRN ×3 (00:39→16:01)
[2022-10-06 05:00] VITALS: BP 108/67
[2022-10-06] MEDS: SODIUM CHLORIDE 0.9% 1,000 ML IV SCH (05:27)
[2022-10-06] MEDS: PIPERACILLIN-TAZOB 3.375GM 100 ML IV SCH ×2 (05:28→13:42)
[2022-10-06] MEDS: InsuLIN REG 1unit/0.01ml Soln (100units/ml) SC SCH ×3 (06:35→17:12)
[2022-10-06] MEDS: ACCU-CHEK COMFORT CURVE STRIP VI SCH ×3 (06:36→17:13)
[2022-10-06 08:00] VITALS: BP 109/69
[2022-10-06] MEDS: LINEZOLID 600MG/300ML 300 ML IV SCH (09:42)
[2022-10-06] MEDS: GABAPENTIN 300 MG CAP PO SCH (09:43)
[2022-10-06] MEDS: APIXABAN 5 MG TAB PO SCH ×2 (09:44→18:29)
[2022-10-06 12:00] VITALS: BP 105/67
[2022-10-06] MEDS ORDERED: LEVO500T31 PO (15:24)
[2022-10-06] MEDS ORDERED: APIX5TAB PO (15:32)
[2022-10-06 16:00] VITALS: BP 96/74
[2022-10-06 18:37] VITALS: BP 116/69
== END 2022-10-06 19:34 | disposition home health service (06) | DRG 871 ==
LOC: ER 13:02 → EDBD 13:02 → TELE 16:05 → TELE-EAST 09-30 13:59 → ICU CENTRL 09-30 22:52 → TELE-CENTR 10-02 15:31 → CENTRAL 10-05 14:23
PROVIDERS: ADMIT Nurse Practitioner Family; ATTEND Internal Medicine
DX: A41.9 Sepsis, unspecified organism (principal); G93.41 Metabolic encephalopathy; J96.01 Acute respiratory failure with hypoxia; I26.99 Other pulmonary embolism without acute cor pulmonale; R65.21 Severe sepsis with septic shock; J18.9 Pneumonia, unspecified organism; N17.9 Acute kidney failure, unspecified; J98.11 Atelectasis; J44.0 Chronic obstructive pulmonary disease with (acute) lower respiratory infection; L03.115 Cellulitis of right lower limb; Z68.44 Body mass index [BMI] 60.0-69.9, adult; E66.01 Morbid (severe) obesity due to excess calories; Z20.822 Contact with and (suspected) exposure to COVID-19; I12.9 Hypertensive chronic kidney disease with stage 1 through stage 4 chronic kidney disease, or unspecified chronic kidney disease; E11.22 Type 2 diabetes mellitus with diabetic chronic kidney disease; N18.2 Chronic kidney disease, stage 2 (mild); E11.51 Type 2 diabetes mellitus with diabetic peripheral angiopathy without gangrene; E11.628 Type 2 diabetes mellitus with other skin complications; E11.621 Type 2 diabetes mellitus with foot ulcer; L97.519 Non-pressure chronic ulcer of other part of right foot with unspecified severity; I27.20 Pulmonary hypertension, unspecified; B96.89 Other specified bacterial agents as the cause of diseases classified elsewhere; M20.41 Other hammer toe(s) (acquired), right foot; Z79.84 Long term (current) use of oral hypoglycemic drugs; Z83.2 Family history of diseases of the blood and blood-forming organs and certain disorders involving the immune mechanism; Z80.1 Family history of malignant neoplasm of trachea, bronchus and lung; Z82.3 Family history of stroke
CPT/HCPCS: 36415; 36600; 70450; 71045; 71275; 73630; 80048; 80053; 80061; 80307; 81001; 82150; 82805; 82962; 83036; 83605; 83880; 83930; 84443; 84484; 85007; 85025; 85027; 85379; 85610; 85730; 87040; 87070; 87076; 87081; 87205; 87426; 93005; 93306; 93925; 93970; 94640; 96365; 96367; 96372; 96375; 97110; 97116; 97163; 97530; 99291; G0378; J1815; J2543